=== PATIENT | female | born 1985 | race African-American/Black ===

== ENCOUNTER 2020-12-31 19:25 | Inpatient (IN) | payer OTHER ==
[2020-12-31 20:30] LABS: BASO % 0.5 % (0-2.0); EOS % 0.6 % (0-4.5); HEMATOCRIT 34.2 % (32.4-45.2); HEMOGLOBIN 11.5 GM/dL (10.7-15.3); LYMPH % 12.6 % (8-40); MCH 32.1 pg (25.7-33.7); MCHC 33.6 g/dl (32.0-36.0); MEAN CELL VOLUME 95.8 fl (80-96); MEAN PLT VOLUME 7.3 fl (7.5-11.1); MONO % 10.6 % (3.8-10.2); NEUT % 75.7 % (42.8-82.8); PLATELET COUNT 270 K/MM3 (134-434); RBC 3.57 M/mm3 (3.60-5.2); RDW 19.3 % (11.6-15.6); WHITE BLOOD COUNT 8.9 K/mm3 (4.0-10.0)
[2020-12-31 20:37] LABS: INR 0.96 (0.83-1.09); PROTHROMBIN TIME (PATIENT) 11.6 SEC (9.7-13.0)
[2020-12-31 20:48] LABS: CALCIUM 8.9 mg/dL (8.5-10.1)
[2020-12-31 20:49] LABS: BLOOD UREA NITROGEN 3.5 mg/dL (7-18)
[2020-12-31 20:52] LABS: CREATININE 0.5 mg/dL (0.55-1.3)
[2020-12-31] MEDS ORDERED: ELECTROLYTE-148 SOLN 500 ML IV ONE (21:05)
[2020-12-31] MEDS ORDERED: CITRIC ACID/SODIUM CITRATE 30 ML UNIT-DOSE CUP PO ONE (21:05)
[2020-12-31 21:12] VITALS: BMI 28.3
[2020-12-31] MEDS ORDERED: ELECTROLYTE-148 SOLN 1,000 ML IV SCH (21:15)
[2020-12-31 21:52] LABS: HIV INTERPRETATION NEGATIVE (NEGATIVE)
[2020-12-31] MEDS ORDERED: morphine SULFATE/PF 0.5 MG/ML (2cc Syringe - QUVA) ONE (22:10)
[2020-12-31] MEDS ORDERED: KETOROLAC TROMETHAMINE 30 MG/1 ML VIAL ONE (22:16)
[2020-12-31] MEDS ORDERED: ONDANSETRON 4 MG/2 ML VIAL ONE (22:16)
[2020-12-31] MEDS ORDERED: ceFAZolin SODIUM 1 GM VIAL ONE (22:16)
[2020-12-31] MEDS ORDERED: OXYTOCIN 10 UNITS/ML VIAL ONE (22:16)
[2020-12-31] MEDS ORDERED: SODIUM CHLORIDE 0.9% P/F 10 ML VIAL IJ ONE (22:16)
[2020-12-31] MEDS ORDERED: morphine SULFATE/PF 0.5 MG/ML (2cc Syringe - QUVA) SPIN ONE (23:59)
[2021-01-01] MEDS ORDERED: METHYLERGONOVINE MALEATE 0.2 MG/1 ML AMP IM PRN (00:10)
[2021-01-01] MEDS ORDERED: oxyCODONE HCL 5 MG TABLET PO PRN ×2 (00:10)
[2021-01-01] MEDS ORDERED: ONDANSETRON 4 MG/2 ML VIAL IVPUSH PRN (00:12)
[2021-01-01] MEDS ORDERED: ACETAMINOPHEN 1000 MG/100 ML VIAL (NON FORMULARY) IVPB ONE (00:15)
[2021-01-01] MEDS ORDERED: OXYTOCIN 20 UNITS in 0.9% NS 20 UNIT/1,000 ML INFUS.BAG IV ONE (01:40)
[2021-01-01] MEDS ORDERED: ACETAMINOPHEN INJECTION 100 ML IVPB ONE (02:11)
[2021-01-01] MEDS: OXYTOCIN 20 UNITS in 0.9% NS 20 UNIT/1,000 ML INFUS.BAG IV SCH ×2 (03:16→12:21)
[2021-01-01] MEDS: IBUPROFEN 800 MG/8 ML IJ IVPB PRN ×2 (03:16→12:32)
[2021-01-01 09:48] LABS: BASO % 0.5 % (0-2.0); EOS % 0.9 % (0-4.5); HEMATOCRIT 32.9 % (32.4-45.2); LYMPH % 13.3 % (8-40); MCH 32.1 pg (25.7-33.7); MCHC 33.4 g/dl (32.0-36.0); MEAN CELL VOLUME 96.2 fl (80-96); MEAN PLT VOLUME 7.4 fl (7.5-11.1); MONO % 8.2 % (3.8-10.2); NEUT % 77.1 % (42.8-82.8); PLATELET COUNT 244 K/MM3 (134-434); RBC 3.42 M/mm3 (3.60-5.2); RDW 18.8 % (11.6-15.6); WHITE BLOOD COUNT 8.3 K/mm3 (4.0-10.0)
[2021-01-01] MEDS: ACETAMINOPHEN 325 MG TABLET (FP) PO PRN (17:01)
[2021-01-01] MEDS: SIMETHICONE 80 MG TAB.CHEW (FP) PO PRN (17:02)
[2021-01-01] MEDS ORDERED: morphine SULFATE 4 MG/ML VIAL IVPUSH ONE (22:35)
[2021-01-01] MEDS ORDERED: ACETAMINOPHEN 1000 MG/100 ML VIAL (NON FORMULARY) IVPB PRN (22:37)
[2021-01-01] MEDS ORDERED: morphine SULFATE 4 MG/ML VIAL ONE (23:11)
[2021-01-02] MEDS ORDERED: BISACODYL 10 MG SUPP.RECT RC PRN (00:10)
[2021-01-02] MEDS ORDERED: ACETAMINOPHEN 1000 MG/100 ML VIAL (NON FORMULARY) IVPB PRN (01:14)
[2021-01-02] MEDS: SIMETHICONE 80 MG TAB.CHEW (FP) PO PRN ×2 (01:51→20:36)
[2021-01-02] MEDS: SENNOSIDES/DOCUSATE COMBO (SENNA PLUS) TABLET (UD) PO PRN ×2 (01:51→20:35)
[2021-01-02] MEDS ORDERED: ZOLPIDEM TARTRATE 5 MG TABLET PO ONE (08:15)
[2021-01-02] MEDS: ACETAMINOPHEN 325 MG TABLET (FP) PO PRN (20:35)
[2021-01-02] MEDS: IBUPROFEN 600 MG TABLET (FP) PO PRN (20:35)
[2021-01-02] MEDS: ZOLPIDEM TARTRATE 5 MG TABLET PO PRN (21:22)
[2021-01-03] MEDS: IBUPROFEN 600 MG TABLET (FP) PO PRN ×2 (12:34→22:35)
[2021-01-03] MEDS: ACETAMINOPHEN 325 MG TABLET (FP) PO PRN ×2 (12:35→22:35)
[2021-01-03] MEDS: SIMETHICONE 80 MG TAB.CHEW (FP) PO PRN (22:36)
[2021-01-03] MEDS: ZOLPIDEM TARTRATE 5 MG TABLET PO PRN (22:44)
[2021-01-04 09:17] VITALS: BP 106/62; PULSE 79; TEMP 98.9
[2021-01-04] MEDS: ACETAMINOPHEN 325 MG TABLET (FP) PO PRN (10:50)
[2021-01-04] MEDS: SIMETHICONE 80 MG TAB.CHEW (FP) PO PRN (10:50)
[2021-01-04] MEDS: IBUPROFEN 600 MG TABLET (FP) PO PRN (10:50)
== END 2021-01-04 15:45 | disposition home or self-care (01) | DRG 540 ==
LOC: JLDR 19:25 → J3W 01-01 02:49
PROVIDERS: ADMIT Obstetrics & Gynecology; ATTEND Obstetrics & Gynecology
PROC: 10D00Z1 Extraction of Products of Conception, Low, Open Approach (ICD-10-PCS; principal; 2020-12-31)
DX: O34.219 Maternal care for unspecified type scar from previous cesarean delivery (principal); O60.14X0 Preterm labor third trimester with preterm delivery third trimester, not applicable or unspecified; Z3A.36 36 weeks gestation of pregnancy; Z37.0 Single live birth; O90.89 Other complications of the puerperium, not elsewhere classified; G89.18 Other acute postprocedural pain
CPT/HCPCS: 36415; 70450-TC; 80048; 85025; 85610; 85730; 86780; 86850; 86900; 86901; 87389; 94010; C9803; J0131; U0003; U0005